=== PATIENT | male | born 1960 | race Caucasian/White ===

== ENCOUNTER 2021-03-29 11:54 | Emergency (ER) | payer SELFPAY ==
[2021-03-29] MEDS ORDERED: Sodium Chloride 0.9% 10 ML Syringe FLUSH PRN (11:55)
[2021-03-29] MEDS ORDERED: Sodium Chloride 0.9% 2.5 ML Syringe FLUSH PRN (11:55)
[2021-03-29] MEDS ORDERED: Sodium Chloride 0.9% 1,000 ML IV ONE (11:58)
[2021-03-29] MEDS ORDERED: Adenosine 6 MG/2 ML SDV IVPUSH ONE ×2 (11:58→11:59)
[2021-03-29] MEDS ORDERED: Adenosine 6 MG/2 ML SDV ONE (12:00)
[2021-03-29 12:50] LABS: BLOOD UREA NITROGEN,BUN 11 mg/dL (7.0-18.0); CARBON DIOXIDE,CO2 23.5 mmol/L (21.0-32.0); CHLORIDE,CL 100 mmol/L (98-107); GLUCOSE RANDOM 148 mg/dL (74-106); POTASSIUM,K 4.5 mmol/L (3.5-5.1); SODIUM,NA 135 mmol/L (136-148)
--- NOTE | 2021-03-29 13:20 | CR ---
INDICATION: Chest pain, shortness of breath TECHNIQUE: Chest radiograph 1 view COMPARISON: None FINDINGS: Mediastinum: The mediastinum is normal in appearance. The heart silhouette is normal in size and morphology. Lung: Both lungs are unremarkable in appearance. The right apex is obscured by a defibrillator pad. No sign of pleural effusion seen. No pneumothorax is identified. Bone and Soft tissue: Unremarkable for age. IMPRESSION: 1. No acute cardiopulmonary disease is seen. Dictated by: Matthew Horton MD @ 03/29/2021 13:18:16 (Electronically Signed)
--- NOTE | 2021-03-29 15:15 | EDM.PDOC ---
<Willie Matthews - Last Filed: 03/29/21 19:40> ED HPI GENERAL MEDICAL PROBLEM - General Chief Complaint: Chest Pain Stated Complaint: CHEST PAIN Time Seen by Provider: 03/29/21 12:10 - History of Present Illness INITIAL COMMENTS - FREE TEXT/NARRATIVE: CHIEF COMPLAINT(S): "I feel my heart racing." HISTORY OF PRESENT ILLNESS: This is a 60-year-old man and without any reported past medical history who comes to the emergency department with a chief complaint of "I feel my heart racing. The patient states that off-and-on for some time now he has had sensations where he feels like his heart is racing. However today the patient states that these episodes of heart racing have lasted longer. He states that it been going on for approximately 1 and half hours any starting to feel dizzy. He denies any chest pain, shortness of breath, abdominal pain, nausea or vomiting. He denies any diaphoresis. States that he drinks the same amount of caffeine that he normally does not denies any other symptoms. He denies any recent travel, recent surgery, prior history of DVT or PE. He denies any history of CAD or CHF. He denies any exertional dyspnea or orthopnea. He states that he is never had it worked up before. REVIEW OF SYSTEMS: Constitutional: Positive for dizziness denies fever, chills. Eyes: Denies eye pain Ears, Nose, Mouth, & Throat: Denies earache Cardiovascular: Positive for palpitations denies chest pain Respiratory: Denies shortness of breath Gastrointestinal: Denies Nausea, vomiting, diarrhea, hematochezia. Genitourinary: Denies hematuria Skin:Denies a rash MSK: Denies joint pain Neurological: Denies blurred vision Psychiatric: Denies depression PAST MEDICAL HISTORY: As per history of present illness and as reviewed below otherwise noncontributory. SURGICAL HISTORY: As per history of present illness and as reviewed below otherwise noncontributory. SOCIAL HISTORY: As per history of present illness and as reviewed below otherwise noncontributory. FAMILY HISTORY: As per history of present illness and as reviewed below otherwise noncontributory. EXAMINATION OF ORGAN SYSTEMS/BODY AREAS: Constitutional: Blood pressure was 97/64, heart rate 218, respiratory rate 20 with an oxygen saturation 98% on room air. Temperature 36.6 General: Overall well-appearing man who is in no acute distress Psychiatric: Appropriate mood and affect. Eyes: No scleral icterus or conjunctival erythema ENMT: Moist mucous membranes. No pharyngeal erythema Cardiovascular: Tachycardic no gallops, murmurs, or rubs. Bilateral upper extremity pulses symmetric and intact. No peripheral edema. No JVD. Respiratory: Lungs clear to auscultation bilaterally. No wheezes, rales, or rhonchi. Gastrointestinal: Soft, non-tender, non-distended. Normoactive bowel sounds Genitourinary: No suprapubic tenderness Musculoskeletal: Normal range of motion. Skin: No lesions or abrasions. Neurological: Alert, GCS 15 MEDICAL DECISION MAKING AND COURSE IN THE ED WITH INTERPRETATION/REVIEW OF DIAGNOSTIC STUDIES: This is a 60-year-old man without any reported past medical history who comes to the emergency department with palpitations with heart rates in the 218's who has a normal blood pressure. Cardiac monitoring at this time did reveal a heart rate in the 200s difficult to assess secondary to tachycardia, pulse oximetry was 98% with good waveform. EKG was obtained which did reveal supraventricular tachycardia. We did try vagal maneuvers without any success. I did discuss with patient at this time I would like to perform chemical cardioversion with adenosine. He was amenable to this plan. We start the patient on 1 L of normal saline bolus and provide the patient with 6 mg of IV adenosine. The patient converted to normal sinus rhythm. Post cardioversion EKG revealed normal sinus rhythm with some lateral ST depressions without any evidence of reciprocal ST elevation. The patient is currently not experiencing any chest pain and feels better after his heart rate had come down. At this time I did discuss with him that given his age I would like to do a cardiac work-up. In addition given the tachycardia differential also includes pulmonary embolism. The patient is low risk for PE therefore we will obtain a D-dimer. We will also obtain a Covid swab. Will obtain a chest x-ray. We will continue cardiac monitoring and pulse oximetry. Laboratory: CBC is unremarkable. D-dimer is negative. CMP reveals hyponatremia otherwise unremarkable. Troponin is negative. Covid is negative. The radiological images were viewed by myself along with reading the report from the radiologist. Chest x-ray does not reveal any acute cardiopulmonary process. After labs and imaging I did discuss the patient would like to obtain a repeat lab given that this started 1 hour prior to arrival. He was amenable to this plan. Patient was able to tolerate p.o. and we did provide him with aspirin by mouth. Laboratory: Repeat troponin is elevated at 0.110. After repeat troponin resulted I did obtain a repeat EKG an EKG revealed sinus rhythm without any ST depressions or elevations. I did contact [facility] in [place] and spoke with Dr. Degroot who recommended at this time repeating the patient's troponin as his elevated troponin is likely secondary to demand secondary to the tachycardia. He states that if the troponin decreases that the patient can be discharged and follow-up outpatient for outpatient stress test. I did discuss this with the patient he was amenable to this plan. DISPOSITION: Patient was signed out to [facility] team physician pending repeat troponin and final disposition CONDITION: Fair PROCEDURES: Cardiac monitoring interpretation, pulse oximetry interpretation FINAL IMPRESSION(S)/DIAGNOSES: 1. Acute palpitations secondary to supraventricular tachycardia 2. Acute supraventricular tachycardia 3. Acute elevated troponin likely secondary to demand ischemia secondary to #1 and #2 Critical Care Procedure Note Authorized and performed by: Willie Matthews M.D. Critical Care Time: 35 minutes Due to a high probability of clinically significant, life threatening deterioration, the patient required my highest level of preparedness to intervene emergently and I personally spent this critical care time directly and personally managing the patient. This critical care time included obtaining a history, examining the patient, pulse oximetry; ordering and review of studies; arranging urgent treatment with development of a management plan; evaluation of a patients reponse to treatment; frequent assessment; and discussions with other providers. This critical care time was performed to assess and manage the high probability of imminent, life threatening deterioration that could result in multiorgan failure. It was exclusive of separate billable procedures and treating other patients. Please see MDM section and rest of the note for further information on patient assessment and treatment. Please see MDM section and rest of the note for further information on patient assessment and treatment. Willie Matthews M.D. Chest Pain Score (Numeric/FACES): 3 - Related Data Allergies Allergy/AdvReac Type Severity Reaction Status Date / Time No Known Allergies Allergy Verified 03/29/21 12:06 Home Meds: Home Meds . [Unable to Verify Home Med List] 03/29/21 [History] Past Medical History Cardiovascular History: Reports: Hypertension - Infectious Disease History Infectious Disease History: Reports: None Social & Family History - Tobacco Use Tobacco Use Status *Q: Current Every Day Tobacco User Years of Tobacco use: 25 Packs/Tins Daily: 1 - Caffeine Use Caffeine Use: Reports: None - Recreational Drug Use Recreational Drug Use: No ED ROS GENERAL - Review of Systems Review Of Systems: See Below ED EXAM, GENERAL - Physical Exam Exam: See Below Departure - Departure Disposition: Against Medical Advice 07 Condition: Fair Clinical Impression: SVT (supraventricular tachycardia), Non-STEMI (non-ST elevated myocardial infarction) - Discharge Information *PRESCRIPTION DRUG MONITORING PROGRAM REVIEWED*: No *COPY OF PRESCRIPTION DRUG MONITORING REPORT IN PATIENT TRELL: No Instructions: Supraventricular Tachycardia, Adult, [id number] Referrals: PCP,None [Primary Care Provider] - Bee Ramsey MD [Physician] - Forms: ED Department Discharge Additional Instructions: You were seen and evaluated in ER today secondary to a rapid heart rate resulting in dizziness. Your rapid heart rate has resolved however your blood tests indicate that you are having a small heart attack. We have repeated your blood tests multiple times and your troponin, and enzyme that is located exclusively in your heart and gets released when there is any damage or to any of your heart cells, has continued to rise. This is an indication that you are having a heart attack and that you need to be admitted to the hospital for further monitoring and evaluation. At this time, you are refusing to be ad mitted to the hospital. I have discussed with you the risks and benefits of admission versus discharge. As you understand, if you are having a heart attack you run a risk of , heart attack, heart failure, further arrhythmias, passing out resulting in head injuries, and other bad events as discussed. As you are excepting these risks, I will respect her autonomy and let you sign out AGAINST MEDICAL ADVICE. Please return to the ED immediately if you change your mind. [facility] - Primary Care [address] [place] [id number] [id number] The patient is informed of any results of their evaluation and diagnostic workup and all questions are answered. They are given discharge instructions and return precautions. The patient is stable for discharge. The patient states they understand and agree with the plan and that they will return if their symptoms get worse or if they have any new concerns. The following information is given to patients seen in the emergency department who are being discharged to home. This information is to outline your options for follow-up care. We provide all patients seen in our emergency department with a follow-up referral. The need for follow-up, as well as the timing and circumstances, are variable depending upon the specifics of your emergency department visit. If you don't have a primary care physician on staff, we will provide you with a referral. We always advise you to contact your personal physician following an emergency department visit to inform them of the circumstance of the visit and for follow-up with them and/or the need for any referrals to a consulting specialist. The emergency department will also refer you to a specialist when appropriate. This referral assures that you have the opportunity for follow-up care with a specialist. All of these measure are taken in an effort to provide you with optimal care, which includes your follow-up. Under all circumstances we always encourage you to contact your private physician who remains a resource for coordinating your care. When calling for follow-up care, please make the office aware that this follow-up is from your recent emergency room visit. If for any reason you are refused follow-up, please contact the [facility] Emergency Department at and asked to speak to the emergency department inna nugent nurse. Sepsis Event Note (ED) - Evaluation Sepsis Screening Result: Possible Sepsis Risk <Олег Jameson - Last Filed: 03/29/21 20:20> ED HPI GENERAL MEDICAL PROBLEM - History of Present Illness INITIAL COMMENTS - FREE TEXT/NARRATIVE: 8:14 PM: Signout received from Dr. Ram at 7 PM. This is a 60-year-old gentleman who presented to the ED with SVT. Patient does have a history of SVT in the past however this episode lasted longer than it normally has in the past and he had some dizziness associated with it so he came to the ED. Patient was noted to have an elevated troponin in the ED on his 2-hour level. The case was discussed with cardiology at [place] who recommended repeating troponin and if it continues to elevate that he should be admitted to the hospital. Cardiology felt that the elevation in troponin was most likely consistent with demand ischemia from his SVT and that he can follow-up safely as an outpatient. My concern with this patient is his third troponin has continued to rise. It is unclear whether or not the patient might have some baseline coronary artery disease that is reached a critical point and resulting in cardiac damage with his SVT " stress test". I have discussed with the patient the plan to admit him to the hospital and to monitor him for further arrhythmias. Patient does not wish to be admitted. I have discussed with him the risks and benefits of admission versus discharge. Basically the risks included cardiac ischemia, arrhythmias resulting in , heart failure and further morbidity from heart disease. Benefits included his autonomy to make his own decisions. At this time, the patient is refusing to stay and understands the risk of . Patient has exhibited both the capacity for medical decision-making as well as competency to make decisions. I will respect the patient's autonomy and allow him to sign out AGAINST MEDICAL ADVICE despite my strong recommendation that he should be admitted medically. Patient understands and will return to the ED if he should change his mind. I have discussed with him that the ER is always available to him to return if he should change his mind. At this time he reports that he may go home and just take a shower change his clothes and come back in for further evaluation. Course - Vital Signs Last Recorded V/S: Last Vital Signs Temp 98.0 F 03/29/21 20:11 Pulse 84 03/29/21 20:11 Resp 18 03/29/21 20:11 BP 133/73 03/29/21 20:11 Pulse Ox 97 03/29/21 20:11 - Orders/Labs/Meds Orders: Active Orders 24 hr Category Date Time Status EKG 12 Lead [EKG Documentation Completion] [RC] STAT Care 03/29/21 16:20 Active EKG Documentation Completion [RC] STAT Care 03/29/21 11:55 Active Sodium Chloride 0.9% [Saline Flush] Med 03/29/21 11:55 Active 10 ml FLUSH ASDIRECTED PRN Sodium Chloride 0.9% [Saline Flush] Med 03/29/21 11:55 Active 2.5 ml FLUSH ASDIRECTED PRN Saline Lock Insert [OM.PC] Stat Oth 03/29/21 11:55 Ordered Medication Orders Sodium Chloride (Sodium Chloride 0.9% 10 Ml Syringe) 10 ml FLUSH ASDIRECTED PRN PRN Reason: Keep Vein Open Last Admin: 03/29/21 12:27 Dose: 10 ml Documented by: UMANG Sodium Chloride (Sodium Chloride 0.9% 2.5 Ml Syringe) 2.5 ml FLUSH ASDIRECTED PRN PRN Reason: Keep Vein Open Last Admin: 03/29/21 12:27 Dose: 2.5 ml Documented by: UMANG Labs: Laboratory Tests 03/29/21 03/29/21 03/29/21 Range/Units 12:01 12:01 12:01 WBC 9.99 (4.0-11.0) K/uL RBC 4.71 (4.50-5.90) M/uL Hgb 15.2 (13.0-17.0) g/dL Hct 43.1 (38.0-50.0) % MCV 91.5 (80.0-98.0) fL MCH 32.3 H (27.0-32.0) pg MCHC 35.3 (31.0-37.0) g/dL RDW Std Deviation 44.4 (28.0-62.0) fl RDW Coeff of Norma 13 (11.0-15.0) % Plt Count 299 (150-400) K/uL MPV 9.90 (7.40-12.00) fL Neut % (Auto) 57.2 (48.0-80.0) % Lymph % (Auto) 31.8 (16.0-40.0) % [place] % (Auto) 8.2 (0.0-15.0) % Eos % (Auto) 2.1 (0.0-7.0) % Baso % (Auto) 0.7 (0.0-1.5) % Neut # (Auto) 5.7 (1.4-5.7) K/uL Lymph # (Auto) 3.2 H (0.6-2.4) K/uL [place] # (Auto) 0.8 (0.0-0.8) K/uL Eos # (Auto) 0.2 (0.0-0.7) K/uL Baso # (Auto) 0.1 (0.0-0.1) K/uL Nucleated RBC % 0.0 /100WBC Nucleated RBCs # 0 K/uL D-Dimer, Quantitative 0.50 (0.0-0.50) mg/L FEU Sodium 135 L (136-148) mmol/L Potassium 4.5 (3.5-5.1) mmol/L Chloride 100 (98-107) mmol/L Carbon Dioxide 23.5 (21.0-32.0) mmol/L BUN 11 (7.0-18.0) mg/dL Creatinine 1.1 (0.8-1.3) mg/dL Est Cr Clr Drug Dosing 62.54 mL/min Estimated GFR (MDRD) > 60.0 ml/min Glucose 148 H (74-106) mg/dL Calcium 8.5 (8.5-10.1) mg/dL Magnesium (1.8-2.4) mg/dL Total Bilirubin 0.5 (0.2-1.0) mg/dL AST 22 (15-37) IU/L ALT 17 (14-63) IU/L Alkaline Phosphatase 59 (46-116) U/L Troponin I < 0.050 (0.000-0.056) ng/mL Total Protein 7.6 (6.4-8.2) g/dL Albumin 4.1 (3.4-5.0) g/dL Globulin 3.5 (2.6-4.0) g/dL Albumin/Globulin Ratio 1.2 (0.9-1.6) SARS-CoV-2 RNA (ONI) (NEGATIVE) 03/29/21 03/29/21 03/29/21 Range/Units 12:01 13:06 15:12 WBC (4.0-11.0) K/uL RBC (4.50-5.90) M/uL Hgb (13.0-17.0) g/dL Hct (38.0-50.0) % MCV (80.0-98.0) fL MCH (27.0-32.0) pg MCHC (31.0-37.0) g/dL RDW Std Deviation (28.0-62.0) fl RDW Coeff of Norma (11.0-15.0) % Plt Count (150-400) K/uL MPV (7.40-12.00) fL Neut % (Auto) (48.0-80.0) % Lymph % (Auto) (16.0-40.0) % [place] % (Auto) (0.0-15.0) % Eos % (Auto) (0.0-7.0) % Baso % (Auto) (0.0-1.5) % Neut # (Auto) (1.4-5.7) K/uL Lymph # (Auto) (0.6-2.4) K/uL [place] # (Auto) (0.0-0.8) K/uL Eos # (Auto) (0.0-0.7) K/uL Baso # (Auto) (0.0-0.1) K/uL Nucleated RBC % /100WBC Nucleated RBCs # K/uL D-Dimer, Quantitative (0.0-0.50) mg/L FEU Sodium (136-148) mmol/L Potassium (3.5-5.1) mmol/L Chloride (98-107) mmol/L Carbon Dioxide (21.0-32.0) mmol/L BUN (7.0-18.0) mg/dL Creatinine (0.8-1.3) mg/dL Est Cr Clr Drug Dosing mL/min Estimated GFR (MDRD) ml/min Glucose (74-106) mg/dL Calcium (8.5-10.1) mg/dL Magnesium 1.8 (1.8-2.4) mg/dL Total Bilirubin (0.2-1.0) mg/dL AST (15-37) IU/L ALT (14-63) IU/L Alkaline Phosphatase (46-116) U/L Troponin I 0.110 H* (0.000-0.056) ng/mL Total Protein (6.4-8.2) g/dL Albumin (3.4-5.0) g/dL Globulin (2.6-4.0) g/dL Albumin/Globulin Ratio (0.9-1.6) SARS-CoV-2 RNA (ONI) NEGATIVE (NEGATIVE) 03/29/21 Range/Units 19:07 WBC (4.0-11.0) K/uL RBC (4.50-5.90) M/uL Hgb (13.0-17.0) g/dL Hct (38.0-50.0) % MCV (80.0-98.0) fL MCH (27.0-32.0) pg MCHC (31.0-37.0) g/dL RDW Std Deviation (28.0-62.0) fl RDW Coeff of Norma (11.0-15.0) % Plt Count (150-400) K/uL MPV (7.40-12.00) fL Neut % (Auto) (48.0-80.0) % Lymph % (Auto) (16.0-40.0) % [place] % (Auto) (0.0-15.0) % Eos % (Auto) (0.0-7.0) % Baso % (Auto) (0.0-1.5) % Neut # (Auto) (1.4-5.7) K/uL Lymph # (Auto) (0.6-2.4) K/uL [place] # (Auto) (0.0-0.8) K/uL Eos # (Auto) (0.0-0.7) K/uL Baso # (Auto) (0.0-0.1) K/uL Nucleated RBC % /100WBC Nucleated RBCs # K/uL D-Dimer, Quantitative (0.0-0.50) mg/L FEU Sodium (136-148) mmol/L Potassium (3.5-5.1) mmol/L Chloride (98-107) mmol/L Carbon Dioxide (21.0-32.0) mmol/L BUN (7.0-18.0) mg/dL Creatinine (0.8-1.3) mg/dL Est Cr Clr Drug Dosing mL/min Estimated GFR (MDRD) ml/min Glucose (74-106) mg/dL Calcium (8.5-10.1) mg/dL Magnesium (1.8-2.4) mg/dL Total Bilirubin (0.2-1.0) mg/dL AST (15-37) IU/L ALT (14-63) IU/L Alkaline Phosphatase (46-116) U/L Troponin I 0.176 H* (0.000-0.056) ng/mL Total Protein (6.4-8.2) g/dL Albumin (3.4-5.0) g/dL Globulin (2.6-4.0) g/dL Albumin/Globulin Ratio (0.9-1.6) SARS-CoV-2 RNA (ONI) (NEGATIVE) Meds: Medications Generic Name Dose Route Start Last Admin Trade Name Robiq PRN Reason Stop Dose Admin Sodium Chloride 10 ml 03/29/21 11:55 03/29/21 12:27 Sodium Chloride 0.9% 10 Ml Syringe FLUSH 10 ml ASDIRECTED PRN Administration Keep Vein Open Sodium Chloride 2.5 ml 03/29/21 11:55 03/29/21 12:27 Sodium Chloride 0.9% 2.5 Ml Syringe FLUSH 2.5 ml ASDIRECTED PRN Administration Keep Vein Open Discontinued Medications Generic Name Dose Route Start Last Admin Trade Name Robiq PRN Reason Stop Dose Admin Adenosine 12 mg 03/29/21 11:58 03/29/21 12:24 Adenosine 6 Mg/2 Ml Sdv IVPUSH 03/29/21 11:59 Not Given NOW ONE Adenosine 6 mg 03/29/21 11:59 03/29/21 12:27 Adenosine 6 Mg/2 Ml Sdv IVPUSH 03/29/21 12:00 6 mg NOW ONE Administration Adenosine Confirm 03/29/21 12:00 03/29/21 12:26 Adenosine 6 Mg/2 Ml Sdv Administered 03/29/21 12:01 Not Given Dose 6 mg .ROUTE .STK-MED ONE Aspirin 324 mg 03/29/21 16:21 03/29/21 16:29 Aspirin 81 Mg Tab.Chew PO 03/29/21 16:22 324 mg ONETIME ONE Administration Sodium Chloride 1,000 mls @ 999 mls/hr 03/29/21 11:58 03/29/21 12:27 Normal Saline IV 03/29/21 12:58 999 mls/hr STAT ONE Administration Departure - Departure Time of Disposition: 20:18 Sepsis Event Note (ED) - Focused Exam Vital Signs: Vital Signs Temp Pulse Resp BP Pulse Ox 03/29/21 20:11 98.0 F 84 18 133/73 97 03/29/21 19:46 78 16 136/81 98 03/29/21 19:05 78 18 122/81 97 03/29/21 18:37 98.2 F 82 18 130/71 97 03/29/21 18:00 82 20 127/72 97 03/29/21 17:28 82 18 115/72 97 03/29/21 16:58 78 18 133/71 97 03/29/21 16:31 84 18 133/78 97 03/29/21 16:00 78 18 128/78 97 03/29/21 15:14 78 18 123/81 97 03/29/21 13:52 98.1 F 78 20 122/71 97 03/29/21 13:00 80 18 131/81 98 03/29/21 11:54 98 F 218 H 20 97/64 98
[2021-03-29] MEDS ORDERED: Aspirin 81 MG Tab.Chew PO ONE (16:21)
--- NOTE | 2021-03-29 18:00 | PCM.EKG ---
#1 Interpretation EKG Date: 03/29/21 Time: 11:54 Rhythm: Other (SVT) Rate (Beats/Min): 215 [place]: Normal P-Wave: Present QRS: Normal ST-T: Depressed (diffuse) QT: Normal Comparison: NA - No Prior EKG EKG Interpretation Comments: Supraventricular Tachycardia with ST Depressions throughout. Likely rate rela iona. #2 Interpretation EKG Date: 03/29/21 Time: 12:01 Rhythm: NSR Rate (Beats/Min): 93 [place]: Normal P-Wave: Present QRS: Normal ST-T: Depressed (V3-V6) QT: Normal Comparison: Change From Previous EKG (Now sinus rhythm with lateral ST depr) EKG Interpretation Comments: Sinus Rhythm with lateral ST depressions. No elevations. #3 Interpretation EKG Date: 03/29/21 Time: 12:44 Rhythm: NSR Rate (Beats/Min): 83 [place]: Normal P-Wave: Present QRS: Normal ST-T: Normal QT: Normal Comparison: Change From Previous EKG (Now normal) EKG Interpretation Comments: Sinus Rhythm #4 Interpretation EKG Date: 03/29/21 Time: 16:25 Rhythm: NSR Rate (Beats/Min): 83 [place]: Normal P-Wave: Present QRS: Normal ST-T: Normal QT: Normal Comparison: No Change EKG Interpretation Comments: Sinus Rhythm
== END 2021-03-29 20:16 | disposition left against medical advice (07) ==
LOC: MW.ED 11:54
DX: I21.4 Non-ST elevation (NSTEMI) myocardial infarction (principal); I47.1 Supraventricular tachycardia; R00.2 Palpitations; R79.89 Other specified abnormal findings of blood chemistry; I10 Essential (primary) hypertension; Z72.0 Tobacco use
CPT/HCPCS: 36415; 71045; 80053; 83735; 84484; 85025; 85379; 87635; 93005; 96374; 99285; A9270; J0153; J7030; U0002

== ENCOUNTER 2021-03-29 21:15 | Emergency (ER) | payer SELFPAY ==
[2021-03-29 22:05] LABS: BLOOD UREA NITROGEN,BUN 17 mg/dL (7.0-18.0); CARBON DIOXIDE,CO2 29.1 mmol/L (21.0-32.0); CHLORIDE,CL 104 mmol/L (98-107); GLUCOSE RANDOM 89 mg/dL (74-106); POTASSIUM,K 4.5 mmol/L (3.5-5.1); SODIUM,NA 141 mmol/L (136-148)
[2021-03-30] MEDS ORDERED: Enoxaparin 60 MG/0.6 ML Syringe SUBCUT ONE (00:26)
[2021-03-30] MEDS ORDERED: Aspirin 81 MG Tab.Chew PO ONE (00:26)
--- NOTE | 2021-03-30 06:23 | EDM.PDOC ---
<Олег Jameson - Last Filed: 03/30/21 06:25> ED HPI GENERAL MEDICAL PROBLEM - General Chief Complaint: Chest Pain Stated Complaint: CHEST PAIN Time Seen by Provider: 03/29/21 21:27 - History of Present Illness INITIAL COMMENTS - FREE TEXT/NARRATIVE: HISTORY AND PHYSICAL: History of present illness: This is a 60-year-old gentleman with no significant past medical history who presents ER today after signing out AGAINST MEDICAL ADVICE for further evaluation of abnormal troponin and non-STEMI. Patient presented to the ER initially secondary to having palpitations and SVT. Patient was noted to have a heart rate greater than 200. Patient had presented to the ER at that time secondary to his palpitations lasting approximately 1/2 hours which is much longer than usual and having episodes of dizziness with it. Upon arrival to the ED, the patient had labs drawn as well as an EKG. Patient was given adenosine which resulted in resolution of the SVT and patient went back into sinus rhythm. Patient's initial troponin was normal however a repeat troponin was noted to be elevated at 0.110. Due to his elevated troponin, it was felt that the patient will need cardiac consultation. Case was discussed with cardiology at [facility] and they recommended a repeat troponin. If the repeat troponin level was improving that the grounds maintenance manager felt that it would be safe for the patient to be discharged home with close outpatient cardiology follow-up. Patient had a repeat troponin that was even more elevated at 0.176. I went and discussed the results with the patient and given that his troponin was continue to elevate that the plan will be to admit him to the hospital for further cardiac evaluation. Patient reports that he was willing to be admitted however he was not able to stay in the ER and want to go home in order to clean up prior to being admitted. I have discussed with the patient the risks of leaving the ER and he agreed and signed out AGAINST MEDICAL ADVICE but promised to return. Approximately 1 to 2 hours after signing out AGAINST MEDICAL ADVICE, patient return to the ER as promised for further evaluation and admission for his elevated troponin levels. Patient denies any recent fevers, shakes, chills, nausea, vomiting, diarrhea, dysuria, frequency, urgency, chest pain, shortness of breath, abdominal pain. Patient reports no further episodes of palpitations or dizziness. Review of systems: As per history of present illness and below otherwise all systems reviewed and negative. Past medical history: As per history of present illness and as reviewed below otherwise noncontributory. Surgical history: As per history of present illness and as reviewed below otherwise noncontributory. Social history: No reported history of drug abuse. Family history: As per history of present illness and as reviewed below otherwise noncontributory. Physical exam: This patient was seen and evaluated during the 2019 SARS-CoV-2 novel coronavirus pandemic period. Community viral transmission is ongoing at time of this encounter and the emergency department is operating under pandemic response procedures. Constitutional: Patient is oriented to person, place, and time. Appears well- developed and well-nourished. No distress. HEENT: Moist mucous membranes Head: Normocephalic and atraumatic Eyes: Right eye exhibits no discharge. Left eye exhibits no discharge. No scleral icterus Neck: Normal range of motion. No tracheal deviation present. Cardiovascular: Normal rate and regular rhythm. Pulmonary: Effort normal, no respiratory distress. Abdominal: No distention Musculoskeletal: Normal range of motion Neurologic: Alert and oriented to person, place and time. Skin: [place], warm and dry. Psychiatric: Normal mood and affect. Behavior is normal. Judgment and thought content normal. Nursing note and vital signs have been reviewed Diagnostics: Patient had repeat CBC CMP which were within normal limits. Patient's for troponin level is trending slightly lower at 0.136. Patient's EKGs remained stable without any significant changes. Therapeutics: Aspirin 325 p.o. Lovenox 1 mg/kg subcu Assessment and plan: This is a 60-year-old gentleman who presented to the ER yesterday for SVT. Patient cardioverted after adenosine. Patient's troponin level has trended upward from less than 0.05 on presentation to 0.11 followed by 0.176. Given the elevation in his troponin, the patient will need close cardiac monitoring and cardiac consultation with possible stress test versus cardiac catheterization. At this time, we have called multiple institutions including [facility], [facility], [facility], [facility], [facility], [facility], [facility], all of which had no availability to accept patient for transfer. I have discussed this with the patient as well as the customs house broker discussing this with the patient and he is amenable to staying in the ED. At this time, we are unable to admit the patient to the hospital secondary to his elevated troponin level and the inability to obtain cardiac consultation here in [place]. Patient understands that the plan at this time is to monitor him here in the ED, will continue to give him serial troponin levels. Patient was given Lovenox as well as aspirin in the ED. Patient understand that we will call the facilities in the morning to see if there is any bed availability at any of the outlying hospitals once discharges have occurred. Definitive disposition and diagnosis as appropriate pending reevaluation and review of above. - Related Data Allergies Allergy/AdvReac Type Severity Reaction Status Date / Time No Known Allergies Allergy Verified 03/29/21 21:38 Home Meds: Home Meds Metoprolol Succinate [Toprol XL] 25 mg PO DAILY #30 tab.er 03/30/21 [Rx] amLODIPine [Norvasc] 5 mg PO DAILY 03/30/21 [History] Past Medical History Cardiovascular History: Reports: Hypertension - Infectious Disease History Infectious Disease History: Reports: None Social & Family History - Caffeine Use Caffeine Use: Reports: None ED ROS GENERAL - Review of Systems Review Of Systems: See Below ED EXAM, GENERAL - Physical Exam Exam: See Below #1 Interpretation EKG Interpretation Comments: EKG date March 29, 2021 9:35 PM EKG: As interpreted by ER physician: Gisell: Nonspecific ST-T wave abnormalities Normal axis No evidence of ST elevation MD Normal sinus rhythm heart rate of 70 Departure - Departure Disposition: Home, Self-Care 01 Clinical Impression: Type 2 MD (myocardial infarction), SVT (supraventricular tachycardia) - Discharge Information Prescriptions: Metoprolol Succinate [Toprol XL] 25 mg PO DAILY #30 tab.er Instructions: Supraventricular Tachycardia, Adult, [id number] Referrals: PCP,None [Primary Care Provider] - Bee Ramsey MD [Physician] - Forms: ED Department Discharge Additional Instructions: You were evaluated today on an emergent basis. In discussion with grounds maintenance manager Dr. Brewer he recommend you start metoprolol 25 mg daily and they will call you with a test for your stress test. If you have any worsening palpitations or development of chest pain, shortness of breath or passed out I would like you to return to the emergency department. In addition I would like you to also set up a primary care physician appointment after you have visited with cardiology [facility] [address] [place] [address] [facility] [address] [place] [address] The patient is informed of any results of their evaluation and diagnostic workup and all questions are answered. They are given discharge instructions and return precautions. The patient is stable for discharge. The patient states they understand and agree with the plan and that they will return if their symptoms get worse or if they have any new concerns. The following information is given to patients seen in the emergency department who are being discharged to home. This information is to outline your options for follow-up care. We provide all patients seen in our emergency department with a follow-up referral. The need for follow-up, as well as the timing and circumstances, are variable depending upon the specifics of your emergency department visit. If you don't have a primary care physician on staff, we will provide you with a referral. We always advise you to contact your personal physician following an emergency department visit to inform them of the circumstance of the visit and for follow-up with them and/or the need for any referrals to a consulting specialist. The emergency department will also refer you to a specialist when appropriate. This referral assures that you have the opportunity for follow-up care with a specialist. All of these measure are taken in an effort to provide you with optimal care, which includes your follow-up. Under all circumstances we always encourage you to contact your private physician who remains a resource for coordinating your care. When calling for follow-up care, please make the office aware that this follow-up is from your recent emergency room visit. If for any reason you are refused follow-up, please contact the [facility] Emergency Department at and asked to speak to the emergency department charge nurse. Sepsis Event Note (ED) - Evaluation Sepsis Screening Result: No Definite Risk <Willie Matthews - Last Filed: 03/30/21 19:56> ED HPI GENERAL MEDICAL PROBLEM - History of Present Illness INITIAL COMMENTS - FREE TEXT/NARRATIVE: Patient was signed out to me by Dr. Jameson pending repeat troponin, EKG and contacting outside hospitals for admission given that there was no inpatient beds in the state of [place] or [place] throughout the evening at 7 AM I did reevaluate the patient and patient continued to to remain stable. He was tolerating breakfast when I had the evaluation. Cardiac monitoring at this time did reveal sinus rhythm and pulse oximetry with good waveform was 98 to 90% on room air. EKG was unremarkable. Laboratory: Troponin was negative. This was decreased from prior at 0.132. Given that his troponin has down trended I did discuss with patient that I would like to speak with our grounds maintenance manager here as yesterday we had discussed that he needs an outpatient stress test. At this time we contacted our grounds maintenance manager Dr. Brewer who stated that he would come to evaluate the patient in the emergency department and come up with a plan. Cardiology did come and evaluate the patient. He recommended outpatient metoprolol and that his nurses will be calling for a stress test outpatient this week. The patient is stable for discharge at this time. DISPOSITION: The patient was discharged home in stable condition. The patient will follow up with grounds maintenance manager for stress test this week CONDITION: Fair PROCEDURES: Cardiac monitoring interpretation, pulse oximetry interpretation FINAL IMPRESSION(S)/DIAGNOSES: 1. Acute elevated troponin likely secondary to type II demand ischemia Willie Matthews M.D. Course - Vital Signs Last Recorded V/S: Last Vital Signs Temp 36.6 C 03/29/21 21:36 Pulse 67 03/30/21 06:53 Resp 17 03/30/21 06:53 BP 132/79 03/30/21 06:53 Pulse Ox 94 L 03/30/21 06:53 - Orders/Labs/Meds Labs: Laboratory Tests 03/29/21 03/29/21 03/30/21 Range/Units 21:32 21:32 06:34 WBC 7.87 (4.0-11.0) K/uL RBC 4.71 (4.50-5.90) M/uL Hgb 15.3 (13.0-17.0) g/dL Hct 43.2 (38.0-50.0) % MCV 91.7 (80.0-98.0) fL MCH 32.5 H (27.0-32.0) pg MCHC 35.4 (31.0-37.0) g/dL RDW Std Deviation 45.2 (28.0-62.0) fl RDW Coeff of Norma 13 (11.0-15.0) % Plt Count 304 (150-400) K/uL MPV 10.10 (7.40-12.00) fL Neut % (Auto) 44.5 L (48.0-80.0) % Lymph % (Auto) 39.6 (16.0-40.0) % [place] % (Auto) 11.9 (0.0-15.0) % Eos % (Auto) 3.4 (0.0-7.0) % Baso % (Auto) 0.6 (0.0-1.5) % Neut # (Auto) 3.5 (1.4-5.7) K/uL Lymph # (Auto) 3.1 H (0.6-2.4) K/uL [place] # (Auto) 0.9 H (0.0-0.8) K/uL Eos # (Auto) 0.3 (0.0-0.7) K/uL Baso # (Auto) 0.1 (0.0-0.1) K/uL Nucleated RBC % 0.0 /100WBC Nucleated RBCs # 0 K/uL Sodium 141 (136-148) mmol/L Potassium 4.5 (3.5-5.1) mmol/L Chloride 104 (98-107) mmol/L Carbon Dioxide 29.1 (21.0-32.0) mmol/L BUN 17 (7.0-18.0) mg/dL Creatinine 1.0 (0.8-1.3) mg/dL Est Cr Clr Drug Dosing TNP Estimated GFR (MDRD) > 60.0 ml/min Glucose 89 (74-106) mg/dL Calcium 8.7 (8.5-10.1) mg/dL Total Bilirubin 0.6 (0.2-1.0) mg/dL AST 29 (15-37) IU/L ALT 21 (14-63) IU/L Alkaline Phosphatase 58 (46-116) U/L Troponin I 0.132 H* < 0.050 (0.000-0.056) ng/mL Total Protein 7.7 (6.4-8.2) g/dL Albumin 4.1 (3.4-5.0) g/dL Globulin 3.6 (2.6-4.0) g/dL Albumin/Globulin Ratio 1.1 (0.9-1.6) Meds: Medications Discontinued Medications Generic Name Dose Route Start Last Admin Trade Name Freq PRN Reason Stop Dose Admin Aspirin 324 mg 03/30/21 00:26 03/30/21 01:38 Aspirin 81 Mg Tab.Chew PO 03/30/21 00:27 324 mg ONETIME ONE Administration Enoxaparin Sodium 60 mg 03/30/21 00:26 03/30/21 01:38 Enoxaparin 60 Mg/0.6 Ml Syringe SUBCUT 03/30/21 00:27 60 mg ONETIME ONE Administration Departure - Departure Time of Disposition: 09:48 Condition: Fair - Discharge Information *PRESCRIPTION DRUG MONITORING PROGRAM REVIEWED*: No *COPY OF PRESCRIPTION DRUG MONITORING REPORT IN PATIENT TRELL: No
--- NOTE | 2021-03-30 12:32 | PCM.EKG ---
#1 Interpretation EKG Date: 03/30/21 Time: 07:03 Rhythm: NSR Rate (Beats/Min): 64 [place]: Normal P-Wave: Present QRS: Normal ST-T: Normal QT: Normal Comparison: No Change (Today) EKG Interpretation Comments: Sinus Rhythm
--- NOTE | 2021-03-30 13:21 | CONS ---
DATE OF CONSULTATION: 03/30/2021 DATE OF : 1960 PRIMARY CARE PHYSICIAN: None PCP REASON FOR CONSULTATION: Troponin elevation, SVT. HISTORY OF PRESENT ILLNESS: This is a 60-year-old male with history of hypertension, current smoker, presented to hospital with 1 hour of the palpitations. He has had a palpitation for years, at least 3 or 4 years. However, it is not everyday symptoms, pretty much once a week and it does not last long, 5 minutes or so, however, on the day of the ER visit, he started having the palpitation while washing his equipment and it was not strenuous. He started having heart racing, it was fast and irregular, however, lasting longer than usually 1 hour. He felt lightheaded, brain fog, but no sweating. No shortness of breath. Not much of the chest pain at that time. He decided to come to the emergency room. In the ER, his EKG showed SVT, heart rate of 215. Troponin first set was negative. He received adenosine 6 mg IV push x1 and he converted to sinus rhythm. His vital signs with the tachycardia was 155/79, elevated, and his labs, the first set of troponin was negative, however, the second, third, and fourth were positive 0.1, and the fifth troponin was negative. Now, he has been chest pain-free and palpitation-free since. PAST MEDICAL HISTORY: Including hypertension. Denied history of diabetes or hypercholesterolemia. ALLERGIES: No known drug allergies. FAMILY HISTORY: Denies family history of a heart attack or arrhythmia. MEDICATIONS: Including amlodipine 5 mg once a day. SOCIAL HISTORY: He is a current smoker, 1 pack per day. He drinks alcohol 6 to 7 beers a night. No drug use. He drinks caffeine, 1 big bottle a day. PHYSICAL EXAMINATION: VITAL SIGNS: The initial blood pressure was 159/79 with a heart rate of 215, O2 sat of 94 on room air, respirations 12 to 15. HEENT: Not pale. No jaundice. NECK: No JVD. HEART: Normal S1, S2. No murmur. LUNGS: Clear. ABDOMEN: Soft, nontender. Bowel sounds present. No hepatosplenomegaly. EXTREMITIES: No edema. INVESTIGATION: EKG on 03/29/2021 shows SVT, heart rate of 215, QRS [address]-depression in II, III, aVF as well as V4 to V6. After the adenosine 6 mg, he was converted to sinus rhythm. CBC: Initial CBC showed WBC 9.9, hematocrit of 43, platelet of 299. D-dimer was negative. Sodium 135, potassium 4.5, BUN 11, creatinine 1.1, glucose 148. Troponin as noted above. The first set was negative. The second, third, and fourth 0.1. The fifth was less than 0.05. ASSESSMENT AND PLAN: This is a 60-year-old male, current smoker, hypertension, came in with the supraventricular tachycardia, converted to sinus rhythm after 6 mg of adenosine. 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 There was ST-depression in the lateral chest lead as well as inferiorly with the troponin leaking, could be demanding ischemia. However, he needs to have ischemic workup, recommended outpatient stress test. I will start the patient on Toprol-XL 25 mg once a day. MARIANA / EBER /[id number]
== END 2021-03-30 09:53 | disposition home or self-care (01) ==
LOC: MW.ED 21:15
DX: I21.9 Acute myocardial infarction, unspecified (principal); I47.1 Supraventricular tachycardia; I10 Essential (primary) hypertension; R79.89 Other specified abnormal findings of blood chemistry; Z79.899 Other long term (current) drug therapy
CPT/HCPCS: 36415; 80053; 84484; 85025; 93005; 96372; 99285; A9270; J1650

== ENCOUNTER 2022-12-03 17:08 | Emergency (ER) | payer BC ==
[2022-12-03] MEDS ORDERED: Tetracaine HCl/PF 0.5% 4 ML Bottle EYELF ONE (17:45)
[2022-12-03] MEDS ORDERED: Ofloxacin 0.3% Ophth Soln 5 ML Bottle EYELF ONE (17:46)
== END 2022-12-03 18:29 | disposition home or self-care (01) ==
LOC: MW.ED 17:08
DX: T15.02XA Foreign body in cornea, left eye, initial encounter (principal); F17.210 Nicotine dependence, cigarettes, uncomplicated; I10 Essential (primary) hypertension; Z79.899 Other long term (current) drug therapy
CPT/HCPCS: 99283; J3490